=== PATIENT | male | born 1940 | race Caucasian/White ===

== ENCOUNTER 2017-05-06 07:41 | Observation (INO) | payer MEDICARE ==
[~2017-05-06] VITALS: Ht 177.8 cm; Wt 97.5 kg
[~2017-05-06 07:41] MED LIST: BACITRACIN 50,000 UNIT VIAL ONE; MUPIROCIN 2% OINT 22 GM TUBE ONE; ROPIVACAINE 246.25 MG, EPINEPHRINE HCL 1:1000 0.5 MG, CLONIDINE HCL 0.08 MG, KETOROLAC ... INJ ONE; SIMVASTATIN20 MG PO; TRANEXAMIC ACID 1,000 MG/10 ML ML ONE
[2017-05-06] MEDS ORDERED: DEXAMETHASONE SOD PHOS 10 MG/1 ML VIAL ONE (07:54)
[2017-05-06] MEDS ORDERED: GABAPENTIN 300 MG CAP ONE (07:54)
[2017-05-06] MEDS ORDERED: CEFAZOLIN SOD 2 GM/D5W 50ML 50 ML IV ONE (07:55)
[2017-05-06] MEDS ORDERED: CELECOXIB 200 MG CAP ONE (07:55)
[2017-05-06] MEDS ORDERED: HYDROCODONE/APAP 7.5MG-325MG 1 EA TAB PO PRN (10:00)
[2017-05-06] MEDS ORDERED: DIPHENHYDRAMINE HCL INJ 50 MG/ML VIAL IM/IV PRN (10:00)
[2017-05-06] MEDS ORDERED: ZOLPIDEM TARTRATE 5 MG TAB PO PRN (10:00)
[2017-05-06] MEDS ORDERED: ACETAMINOPHEN 650 MG SUPP PR PRN (10:00)
[2017-05-06] MEDS ORDERED: DOCUSATE SODIUM 100 MG CAP PO PRN (10:00)
[2017-05-06] MEDS ORDERED: ONDANSETRON HCL INJ 2 MG/ML VIAL IV PRN (10:00)
[2017-05-06] MEDS ORDERED: PROMETHAZINE HCL (IM) 25 MG/ML VIAL INJ PRN (10:00)
[2017-05-06] MEDS ORDERED: KETOROLAC TROMETHAMINE 30 MG/ML VIAL IV PRN (10:00)
[2017-05-06] MEDS ORDERED: FENTANYL CITRATE/PF 100MCG/2 ML INJ ONE ×2 (10:40→18:50)
[2017-05-06] MEDS: ACETAMINOPHEN 1000 MG/100 ML IV SCH ×3 (12:00→23:43)
--- NOTE | 2017-05-06 12:08 | Diagnostic Imaging Report ---
PROCEDURE: X-RAY LEFT KNEE, ONE OR TWO VIEWS COMPARISON: None. INDICATIONS:POST OPERATIVE KNEE X-RAY FINDINGS: See conclusion. CONCLUSION: Status post total left knee replacement with surrounding soft tissue swelling, air and butch consistent with recent surgery. No acute fractures. Dictated by: Willie Castro M.D. on 05/06/2017 at 12:16 Electronically approved by: Willie Castro M.D. on 05/06/2017 at 12:16
--- NOTE | 2017-05-06 13:34 | Operative Report ---
DATE OF PROCEDURE: May 06, 2017 WIG SALES CONSULTANT: Rogers Nowak PA-C The patient was brought to the operating room for induction of anesthesia. Throughout this case, my PA's assistance was necessary for retraction of soft tissue and positioning of the extremity. This allows for efficient and technically successful execution of the operation and is considered medically necessary. PREOPERATIVE DIAGNOSIS: Osteoarthritis, left knee. POSTOPERATIVE DIAGNOSIS: Osteoarthritis, left knee. PROCEDURE: Left total knee arthroplasty. INDICATIONS: The patient is a 77-year-old gentleman with advanced arthritis in his left knee. He has failed conservative management, would like to proceed with a left total knee replacement. The risks and benefits have been discussed. The recovery has been discussed. The patient states he understands and wishes to proceed. DESCRIPTION OF PROCEDURE: The patient was brought to the operating room and placed under general anesthetic. He received prophylactic antibiotics, a regional block, and tranexamic acid in the holding area. His left lower extremity was prepped and draped in a sterile manner. A preoperative time out was performed. The extremity was exsanguinated and the proximal tourniquet was inflated to 300 mmHg. An anterior approach with a medial parapatellar arthrotomy was performed. Complete loss of articular cartilage was noted. The knee was brought up into flexion with the patella everted. The cruciate ligaments were sacrificed. A Lac[employer] Nephew Daniela II posterior stabilized knee system was used throughout the case. An extramedullary cutting guide was used to resect the proximal tibia. The cut was referenced off of the least affected lateral compartment. The tibial baseplate was a size #7. The central fin punch was impacted and attention was directed towards the distal femur. An intramedullary cutting guide was used to resect the distal femur in 6 degrees of valgus and rotation referenced off of a combination of landmarks including Whitesides line, the posterior condyles, and the epicondylar axis. The femoral component was also a size #7. The anterior and posterior cuts were made. Trial reductions were performed. A 9 mm ultra-congruent tibial insert provided optimal soft tissue balancing in flexion and extension. The patella was resurfaced with a 35 mm x 7.5 mm patellar button. The thickness was checked before and after and was right around 26 mm. Patellar tracking was noted to be concentric. The trial implants were removed. A 100 mL premixed pericapsular injection was injected into the soft tissue. The knee was thoroughly irrigated with the Pulsavac. The components were cemented into place with a single mix of high-viscosity Simplex cement pre-loaded with antibiotics. Care was taken to remove extravasated cement. The wound was further irrigated while the cement cured. The arthrotomy was then closed with interrupted #1 Ethibond. The knee was put through flexion and extension to ensure a secure closure. The skin was closed with subcuticular Vicryl and butch. A sterile bandage was applied. The patient was extubated and transported to the recovery room in stable condition. Blood loss was minimal and all needle and sponge counts were correct. Job#: [id number] CARLY
[2017-05-06] MEDS ORDERED: LIDOCAINE HCL 2% LOCAL INJ 5 ML SDV VIAL INJ ONE (13:58)
[2017-05-06] MEDS ORDERED: DEXAMETHASONE SOD PHOS INJ 4 MG/ML VIAL ONE (13:58)
[2017-05-06] MEDS ORDERED: SEVOFLURANE INHAL SOLN 250 ML PEN BTL ONE (13:58)
[2017-05-06] MEDS ORDERED: EPHEDRINE SULFATE INJ 50 MG/10 ML SYR ONE (13:58)
[2017-05-06] MEDS ORDERED: ONDANSETRON HCL INJ 2 MG/ML VIAL ONE (13:58)
[2017-05-06] MEDS ORDERED: PROPOFOL IV EMULSION 10 MG/ML 20 ML VIAL ONE (13:58)
[2017-05-06] MEDS ORDERED: CEFAZOLIN SOD 1 GM/NS 50ML 50 ML IV SCH (14:00)
[2017-05-06 16:17] VITALS: BP 134/78
[2017-05-06] MEDS: ASPIRIN 325 MG TAB PO SCH (16:54)
[2017-05-06] MEDS: CEFAZOLIN SOD 1 GM VIAL IV SCH ×2 (16:54→23:43)
[2017-05-06] MEDS: CELECOXIB 200 MG CAP PO SCH (16:55)
[2017-05-06] MEDS ORDERED: CELECOXIB 100 MG CAP PO SCH (17:00)
[2017-05-06 17:15] VITALS: BP 134/78
[2017-05-06] MEDS ORDERED: MIDAZOLAM HCL 2 MG/2 ML VIAL ONE (18:50)
[2017-05-06 20:00] VITALS: BP 123/66
[2017-05-06] MEDS: HYDROCODONE/APAP 5MG-325MG TAB PO PRN (22:07)
[2017-05-06] MEDS: SODIUM CHLORIDE 0.9% 1000ML 1,000 ML IV SCH ×2 (22:56→22:57)
[2017-05-07] VITALS (7 sets, daily range): BP systolic 116–154; BP diastolic 61–85
[2017-05-07] MEDS: ACETAMINOPHEN 1000 MG/100 ML IV SCH (05:32)
[2017-05-07] MEDS: SODIUM CHLORIDE 0.9% 1000ML 1,000 ML IV SCH ×2 (05:32→15:59)
[2017-05-07 07:16] LABS: HEMATOCRIT 36.5 % (38.2-49.6)
[2017-05-07] MEDS: CEFAZOLIN SOD 1 GM VIAL IV SCH (09:00)
[2017-05-07] MEDS: ASPIRIN 325 MG TAB PO SCH ×2 (09:00→16:54)
[2017-05-07] MEDS: CELECOXIB 200 MG CAP PO SCH ×2 (09:00→16:54)
[2017-05-07] MEDS ORDERED: ASPIRIN325 MG PO (09:55)
[2017-05-07] MEDS ORDERED: ACETAMINOPHEN 1000 MG/100 ML IV PRN (10:00)
[2017-05-07] MEDS: HYDROCODONE/APAP 5MG-325MG TAB PO PRN ×2 (11:13→17:41)
[2017-05-07] MEDS ORDERED: NORCO 7.5-3251 EACH PO (15:39)
[2017-05-07] MEDS ORDERED: LIDOCAINE HCL 2% LOCAL 20 ML VIAL ONE (18:39)
[2017-05-07] MEDS ORDERED: ROPIVACAINE 0.5% 5 MG/ML 30 ML SDV ONE (18:39)
[2017-05-08] VITALS: BP 149/86
[2017-05-08 01:10] VITALS: BP 149/86
[2017-05-08] MEDS: SODIUM CHLORIDE 0.9% 1000ML 1,000 ML IV SCH ×2 (02:45→11:59)
[2017-05-08 04:00] VITALS: BP 136/82
[2017-05-08 07:01] LABS: HEMATOCRIT 35.9 % (38.2-49.6); HEMOGLOBIN 12.2 g/dL (14.0-18.0)
[2017-05-08] MEDS: ASPIRIN 325 MG TAB PO SCH (07:29)
[2017-05-08] MEDS: CELECOXIB 200 MG CAP PO SCH (07:29)
[2017-05-08 07:30] VITALS: BP 136/82
[2017-05-08 08:53] VITALS: BP 150/89
--- NOTE | 2017-05-08 11:25 | Consultation ---
DATE OF CONSULTATION: May 08, 2017 UROLOGY CONSULTATION REASON FOR CONSULTATION: Urinary retention. HISTORY OF PRESENT ILLNESS: Reynaldo Powell is a 77-year-old man who has never been evaluated by a urologist. He denies hematuria, dysuria, urinary tract infection or urolithiasis. He does report some decreased urinary force of stream for some time, and he also reports several times per night nocturia. The patient denies any other urological problems. He has never had a kidney stone. The patient is 2 days status post left total knee arthroplasty, and urological consultation was sought due to the fact that the patient had urinary retention on postop day #1. He underwent straight catheterization for 700 mL. At a 2nd voiding failure, he had urinary retention for 800 mL. Carty catheter was left in place after the secondary failure. Some blood in the urine and blood around the catheter at the urethral meatus was noted. PAST MEDICAL AND SURGICAL HISTORY 1. Status post tonsillectomy. 2. Status post right upper arm ORIF. 3. Status post left total knee arthroplasty. 4. Hypercholesterolemia. 5. Status post vasectomy. ALLERGIES: NONE KNOWN. CURRENT MEDICATIONS: Please refer to the MAR. SOCIAL HISTORY: The patient quit smoking over 20 years ago. Denies smoking, ethanol or drug use. 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 FAMILY HISTORY: Noncontributory to the active urological problems. REVIEW OF SYSTEMS: As discussed above in the history of present illness and past medical history, otherwise negative for all systems. PHYSICAL EXAMINATION GENERAL: Healthy-appearing man lying in bed in no apparent distress. VITAL SIGNS: He is currently afebrile, and the vital signs are currently stable. ABDOMEN: Soft, nondistended and nontender without costovertebral angle tenderness. The kidneys are not palpable without hepatosplenomegaly. No obvious evidence of hernia. GENITOURINARY: Testes are descended bilaterally. Testes and epididymides are bilaterally unremarkable. The patient has a normal circumcised male phallus with a normal meatus with a Carty catheter in place with blood around the catheter at the urethral meatus. Minimal amount of blood tinging within the Carty catheter. For the remaining physical examination systems, please refer to the admission history and physical on the chart. LABORATORY STUDIES: The patient's hemoglobin is 12.2 and hematocrit 35.9. No other urologically relevant laboratory reports are present in the chart today. ASSESSMENT 1. Urinary retention for 700 and 800 mL. 2. Decreased urinary force of stream in the recent past. 3. Nocturia. 4. Gross hematuria. PLAN 1. The patient can be discharged from a urological standpoint. The only problem is he needs to go home with a Carty catheter. 2. I will give the patient a prescription for Flomax as well as prophylactic antibiotics. The only reason I am giving the patient antibiotics is to prevent the knee from getting infected. 3. The patient needs to follow up in the office for a urodynamic test at which point in time we will determine whether a voiding trial without catheter would be in order. Thank you very much for involving me in the care of your patient. We will be happy to follow him along with you, as well as an outpatient. Job#: [id number] MH cc:MD PINA BLACKWELL,
[2017-05-08 12:29] VITALS: BP 175/84
--- NOTE | 2017-05-24 16:16 | Discharge Summary ---
CHIEF COMPLAINT: Left knee pain. HISTORY OF PRESENT ILLNESS: This is a 77-year-old male who complains of left knee pain for roughly 2 years. He states the pain has gotten progressively worse over the last few months. The patient has tried home exercises, a cortisone injection, and anti-inflammatories without lasting relief. His x-rays show advanced arthritis in the left knee. The findings and options were discussed with the patient. He has been treated with nearly 3 years of conservative management. He is at the point where he feels conservative management has failed. He would now like to proceed with more aggressive intervention. The risks and benefits of a left total knee replacement were explained. The patient states she understands and wishes to proceed. HOSPITAL COURSE: The patient underwent a left total knee replacement without complications. He was then transported to the recovery room and the floor in stable condition. He was followed by Dr. Juares for postop medical management. He progressed well with physical therapy. He had an issue with urinary retention and had to be catheterized. He was seen by Dr. Medina who recommended a home indwelling catheter for a short of period of time. The patient was able to be discharged home on postop day #2. PRINCIPAL DIAGNOSIS: Osteoarthritis of the left knee. PRINCIPAL PROCEDURE: Left total knee replacement. DISCHARGE INSTRUCTIONS: Patient was discharged home with home health and physical therapy arranged. He is to be weightbearing as tolerated with a rolling walker. He was to resume his home medications as directed. He was to take aspirin twice a day for thromboprophylaxis. He was instructed to follow up with urology regarding his catheter and urinary retention. He was instructed to follow up in our office in roughly 8 to 10 days. Dictated by: Rogers Nowak PA-C ALFRED DEMARCO MD Job#: [id number] LUIS E
== END 2017-05-08 12:32 | disposition home health service (06) ==
LOC: OR 07:41 → INTOOBSV 15:00 → MED/SURG 15:00
PROVIDERS: ADMIT Specialist; ATTEND Specialist
DX: M17.12 Unilateral primary osteoarthritis, left knee (principal); R33.9 Retention of urine, unspecified; R31.0 Gross hematuria; D64.9 Anemia, unspecified; R35.1 Nocturia; Z01.812 Encounter for preprocedural laboratory examination; Z87.891 Personal history of nicotine dependence; Z79.82 Long term (current) use of aspirin; E78.00 Pure hypercholesterolemia, unspecified
CPT/HCPCS: 27447; 36415 ×2; 51702; 73560; 85014 ×2; 85018 ×2; 86850; 86900; 86920; 97110 ×2; 97116 ×2; 97161; 97530; C1713; G0378 ×3; G8978; G8979; J0171; J0690 ×2; J1100 ×2; J1885; J2001 ×2; J2250; J2405; J2795 ×2; J7030 ×2

== ENCOUNTER → 2018-01-17 | Outpatient (CLI) | payer MEDICARE ==
[~2018-01-17] MED LIST changes: +ASPIRIN325 MG PO; -BACITRACIN 50,000 UNIT VIAL ONE; -MUPIROCIN 2% OINT 22 GM TUBE ONE; +NORCO 7.5-3251 EACH PO; -ROPIVACAINE 246.25 MG, EPINEPHRINE HCL 1:1000 0.5 MG, CLONIDINE HCL 0.08 MG, KETOROLAC ... INJ ONE; -TRANEXAMIC ACID 1,000 MG/10 ML ML ONE
--- NOTE | 2018-01-17 12:52 | Diagnostic Imaging Report ---
EXAM: CT Abdomen and Pelvis WITHOUT contrast INDICATION: \[id number] \S\1210 \S\CALCULUS OF KIDNEY COMPARISON: KUB 12/18/2017 TECHNIQUE: Abdomen and pelvis were scanned utilizing a multidetector helical scanner from the lung base to the pubic symphysis without administration of IV contrast. Absence of intravenous contrast decreases sensitivity for detection of focal lesions and vascular pathology. Coronal and sagittal reformations were obtained. Routine protocol was performed. IV CONTRAST: None. ORAL CONTRAST: Water RADIATION DOSE: Total DLP: 902.6 mGy*cm Estimated effective dose: (DLP x 0.015 x size factor) mSv COMPLICATIONS: None FINDINGS: LINES and TUBES: None. LOWER THORAX: 5 mm pleural-based solid nodule in the lingula on series 3, image 6. Mild atherosclerotic calcifications of the abdominal aorta. HEPATOBILIARY: 10 mm hypodense cystic lesion in the posterior lobe of the liver on series 3, image 26 may represent a cyst. No biliary ductal dilation. GALLBLADDER: No radio-opaque stones or sludge. No wall thickening. SPLEEN: No splenomegaly. PANCREAS: No focal masses or ductal dilatation. ADRENALS: No adrenal nodules KIDNEYS/URETERS: Both kidneys are mildly atrophic. No hydronephrosis. Multiple bilateral low-attenuation cysts. The largest is in the upper pole of the left kidney, measuring 15.6 x 13.1 cm, which contains focal wall calcification within the medial aspect. 7 mm calcified stone in the inferior pole of the left kidney on coronal image 49. No calcified stones in the right kidney or ureters. GI TRACT: No abnormal distention, wall thickening, or evidence of bowel obstruction. Scattered diverticulosis throughout the sigmoid colon. Appendix is normal. PELVIC ORGANS/BLADDER: Unremarkable. LYMPH NODES: No lymphadenopathy. VESSELS: Mild atherosclerotic calcifications of the abdominal aorta without aneurysm. PERITONEUM / RETROPERITONEUM: No free air or fluid. BONES: Multiple right-sided healed rib fractures. Multilevel degenerative changes of the lumbar spine. SOFT TISSUES: Unremarkable. IMPRESSION: 1. Single left inferior pole 7 mm renal stone without obstruction. 2. Multiple bilateral renal cysts with the largest on the left containing focal wall calcification. This can be better follow and evaluated with renal ultrasound in 3-6 months. 3. Lingular 5 mm solid nodule. No further follow-up needed. If high risk, optional CT chest without contrast can be obtained in 12 months. Signed by: Dr. Lizbet Pineda M.D. on 01/17/2018 12:48 PM
== END ==
LOC: CT 11:51
PROVIDERS: ATTEND Urology
DX: N20.0 Calculus of kidney (principal)
CPT/HCPCS: 74176

== ENCOUNTER → 2018-04-04 | Day surgery (SDC) | payer MEDICARE ==
[2018-03-25 12:37] LABS: BASOPHILS # (AUTO) 0.1 (0.0-0.1); BASOPHILS % 0.7 % (0.0-1.0); EOSINOPHILS # (AUTO) 0.1 (0.0-0.4); EOSINOPHILS % 1.9 % (0.0-6.0); HEMATOCRIT 44.2 % (38.2-49.6); HEMOGLOBIN 14.6 g/dL (14.0-18.0); LYMPHOCYTES % 27.4 % (18.0-39.1); MEAN CORPUSCULAR VOLUME 90.8 fL (81-99); MONOCYTES # (AUTO) 0.8 (0.2-0.8); MONOCYTES % 11.5 % (4.4-11.3); NEUTROPHILS # (AUTO) 4.2 (2.1-6.9); NEUTROPHILS % 58.2 % (38.7-80.0); PLATELET COUNT 199 x10e3/uL (140-360); RED BLOOD COUNT 4.87 x10e6/uL (4.3-5.7); RED CELL DISTRIBUTION WIDTH 12.6 % (11.7-14.4)
--- NOTE | 2018-03-25 12:37 | Diagnostic Imaging Report ---
Exam: Abdominal film Clinical History: Preoperative study for urological procedure Comparison: CT abdomen and pelvis without contrast DISCUSSION: Large ovoid relative radiodensity projecting over the left side of the abdomen displaces multiple bowel loops, shown to represent a large left renal cyst on comparison CT. Along the inferior margin, 7 mm left lower pole renal calculus, unchanged. No additional calcifications project over the renal shadows or expected ureteral courses. Bowel gas pattern is nonobstructive. Regional skeletal structures notable for multilevel degenerative disc changes of the thoracolumbar spine and heterotopic ossification along the left iliac wing. IMPRESSION: 7 mm left lower pole renal calculus unchanged compared to prior CT. Signed by: Dr. Arturo Tao M.D. on 03/25/2018 12:34 PM
--- NOTE | 2018-03-25 12:39 | Diagnostic Imaging Report ---
EXAMINATION: PA and lateral views of the chest. COMPARISON: CT abdomen and pelvis without contrast 01/17/2018 CLINICAL HISTORY: Preoperative for urological procedure DISCUSSION: Persistent right hemidiaphragmatic elevation with interposition of colon between the right hepatic lobe and dome of the liver. Lungs are otherwise clear without consolidation, pleural effusion, or pneumothorax. Cardiomediastinal contour is notable for atherosclerotic calcification of the thoracic aorta. Normal heart size. No pulmonary edema. Multiple healed right-sided rib fracture deformities. IMPRESSION: No acute cardiopulmonary abnormality. Signed by: Dr. Arturo Tao M.D. on 03/25/2018 12:36 PM
[2018-03-25 13:16] LABS: BLOOD UREA NITROGEN 19 mg/dL (7-26); BUN/CREATININE RATIO 18 (6-25); CALCIUM 9.2 mg/dL (8.4-10.2); CARBON DIOXIDE 25 mmol/L (22-29); CHLORIDE 105 mmol/L (98-107); CREATININE, SERUM 1.05 mg/dL (0.72-1.25); EST GLOMERULAR FILTRATION RATE > 60 ML/MIN (60-); GLUCOSE 102 mg/dL (74-118); SODIUM 140 mmol/L (136-145)
[~2018-04-04] MED LIST changes: +BELLADONNA/OPIUM 30 MG SUPP RC ONE; +CEFTRIAXONE SOD 1 GM/NS 50 ML 50 ML IV ONE; +DESFLURANE 240 ML BTL INH ONE; +DEXAMETHASONE SOD PHOS INJ 4 MG/ML VIAL ONE; +EPHEDRINE SULFATE INJ 50 MG/10 ML SYR ONE; +FENTANYL CITRATE/PF 100MCG/2 ML INJ ONE; +FINASTERIDE5 MG PO; +FLOMAX0.4 MG PO; +IOPAMIDOL 610MG/1ML 300 MG/ML VIAL IV ONE; +LIDOCAINE HCL 2% LOCAL INJ 5 ML SDV VIAL INJ ONE; +MIDAZOLAM HCL 2 MG/2 ML VIAL ONE; +ONDANSETRON HCL INJ 2MG/ML 2ML 2 MG/ML VIAL ONE; +PROPOFOL IV EMULSION 10 MG/ML 20 ML VIAL ONE
--- OUTSIDE RECORDS SUMMARY | 2018-04-04 05:16 | XMS REPORT ---
Author Author [facility] Address Unknown Phone Unavailable Care Team Providers Care Fitter Tacker Name Role Phone GIOVANI ROSARIO Unavailable Unavailable ALFRED DEMARCO Unavailable Unavailable Problems This patient has no known problems. Allergies, Adverse Reactions, Alerts This patient has no known allergies or adverse reactions. Medications This patient has no known medications. Results Test Description Test Time Test Comments Text Results Atomic Results Result Comments CHEST 2 VIEWS 2018-03-25 12:34:[address] [address] Patient Name: CHU HAZEL MR #: [id number] : 1940 Age/Sex: 78/M Req #: [id number] Adm Physician: Ordered by: GIOVANI ROSARIO MD Report #: [id number] Location: OR Room/Bed: Procedure: [id number] DX/CHEST 2 VIEWS Exam Date: 03/25/18 Exam Time: 1200 REPORT STATUS: Signed EXAMINATION: PA and lateral views of the chest. COMPAR CONRADO: CT abdomen and pelvis without contrast 01/17/2018 CLINICAL HISTORY: Preoperative for urological procedure DISCUSSION: Persistent right hemidiaphragmatic elevation with interposition of colon between the right hepatic lobe and dome of the liver. Lungs are otherwise clear without consolidation, pleural effusion, or pneumothorax. Cardiomediastinal contour is notable for atherosclerotic calcification of the thoracic aorta. Normal heart size. No pulmonary edema. Multiple healed right-sided rib fracture deformities. IMPRESSION: No acute cardiopulmonary abnormality. Signed by: Dr. Alfred Fry M.D. on 03/25/2018 12:36 PM Dictated By: ALFRED FRY MD 1236 Transcribed By: JIMMY on 03/25/18 1236 COPY TO: GIOVANI ROSARIO MD ABDOMEN-1VIEW (KUB) 2018-03-25 12:31:00 [place] [address] Patient Name: CHU HAZEL MR #: [id number] : 1940 Age/Sex: 78/M Req #: [id number] Adm Physician: Ordered by: GIOVANI ROSARIO MD Report #: [id number] Location: OR Room/Bed: Procedure: [id number] DX/ABDOMEN-1VIEW (KUB) Exam Date: 03/25/18 Exam Time: 1200 REPORT STATUS: Signed Exam: Abdominal film Clinical History: Preoperative study for urological procedure Comparison: CT abdomen and pelvis without contrast DISCUSSION: Large ovoid relative radiodensity projecting over the left side of the abdomen displaces multiple bowel loops, shown to represent a large left renal cyst on comparison CT. Along the inferior margin, 7 mm left lower pole renal calculus, unchanged. No additional calcifications project over the renal shadows or expected ureteral courses. Bowel gas pattern is nonobstructive. Regional skeletal structures notable for multilevel degenerative disc changes of the thoracolumbar spine and heterotopic ossification along the left iliac wing. IMPRESSION: 7 mm left lower pole renal calculus unchanged compared to prior CT. Signed by: Dr. Alfred Fry M.D. on 03/25/2018 12:34 PM Dictated By: ALFRED FRY MD 1234 Transcribed By: JIMMY on 03/25/18 1234 COPY TO: GIOVANI ROSARIO MD CT ABDOMEN/PELVIS WO 2018-01-17 12:40:00 [place] [address] Patient Name: CHU HAZEL MR #: [id number] : 1940 Age/Sex: 77/M Req #: [id number] Adm Physician: Ordered by: GIOVANI ROSARIO MD Report #: [id number] Location: CT Room/Bed: Procedure: [id number] CT/CT ABDOMEN/PELVIS WO Exam Date: 01/17/18 Exam Time: 1210 REPORT STATUS: Signed EXAM: CT Abdomen and Pelvis WITHOUT contrast INDICATION: COMPARISON: KUB 12/18/2017 TECHNIQUE: Abdomen and pelvis were scanned utilizing a multidetector helical scanner from the lung base to the pubic symphysis without administration of IV contrast. Absence of intravenous contrast decreases sensitivity for detection of focal lesions and vascular pathology. Coronal and sagittal reformations were obtained. Routine protocol was performed. IV CONTRAST: None. ORAL CONTRAST: Water RADIATION DOSE: Total DLP: 902.6 mGy*cm Estimated effective dose: (DLP x 0.015 x size factor) mSv COMPLICATIONS: None FINDINGS: LINES and TUBES: None. LOWER THORAX: 5 mm pleural-based solid nodule in the lingula on series 3, image 6. Mild atherosclerotic calcifications of the abdominal aorta. HEPATOBILIARY: 10 mm hypodense cystic lesion in the posterior lobe of the liver on series 3, image 26 may represent a cyst. No biliary ductal dilation. GALLBLADDER: No radio-opaque stones or sludge. No wall thickening. SPLEEN: No splenomegaly. PANCREAS: No focal masses or ductal dilatation. ADRENALS: No adrenal nodules KIDNEYS/URETERS: Both kidneys are mildly atrophic. No hydronephrosis. Multiple bilateral low-attenuation cysts. The largest is in the upper pole of the left kidney, measuring 15.6 x 13.1 cm, which contains focal wall calcification within the medial aspect. 7 mm calcified stone in the inferior pole of the left kidney on coronal image 49. No calcified stones in the right kidney or ureters. GI TRACT: No abnormal distention, wall thickening, or evidence of bowel obstruction. Scattered diverticulosis throughout the sigmoid colon. Appendix is normal. PELVIC ORGANS/BLADDER: Unremarkable. LYMPH NODES: No lymphadenopathy. VESSELS: Mild atherosclerotic calcifications of the abdominal aorta without aneurysm. PERITONEUM / RETROPERITONEUM: No free air or fluid. BONES: Multiple right-sided healed rib fractures. Multilevel degenerative changes of the lumbar spine. SOFT TISSUES: Unremarkable. IMPRESSION: 1. Single left inferior pole 7 mm renal stone without obstruction. 2. Multiple bilateral renal cysts with the largest on the left containing focal wall calcification. This can be better follow and evaluated with renal ultrasound in 3-6 months. 3. Lingular 5 mm solid nodule. No further follow-up needed. If high risk, optional CT chest without contrast can be obtained in 12 months. Signed by: Dr. Chong Mueller M.D. on 01/17/2018 12:48 PM Dictated By: CHONG MUELLER MD 1248 Transcribed By: JIMMY on 01/17/18 1248 COPY TO: GIOVANI ROSARIO MD ABDOMEN-1VIEW (KU) 2017-12-18 12:05:00 [place] [address] Patient Name: CHU HAZEL MR #: [id number] : 1940 Age/Sex: 77/M Req #: [id number] Adm Physician: Ordered by: GIOVANI ROSARIO MD Report #: [id number] Location: [facility] Room/Bed: Procedure: DX/ABDOMEN-1VIEW (KUB) Exam Date: 12/18/17 Exam Time: 1140 REPORT STATUS: Signed EXAM: Abdomen 1 Views INDICATION: S CALCULUS OF KIDNEY COMPARISON: None FINDINGS: Mild amount of stool in the colon. No dilated loops of small bowel. 0.6 cm density overlying the inferior pole of the left kidney, likely a left renal stone. Asymmetric soft tissue density overlying the left abdomen. Severe degenerative changes in the lumbar spine and pelvis. IMPRESSION: 1. 0.6 cm left renal stone. 2. Asymmetric density overlying the left abdomen. This is in the approximate location of either an enlarged left kidney or a stomach filled with hyperdense material. Recommend CT abdomen and pelvis with contrast for further evaluation. Signed by: Dr. Chris Wilkins M.D. on 12/18/2017 12:07 PM Dictated By: CHRIS WILKINS MD 06 Transcribed By: JIMMY on 12/18/171206 COPY TO: GIOVANI ROSARIO MD KNEE LEFT 1-2 VIEWS [place] [address] Patient Name: CHU HAZEL MR #: [id number] : 1940 Age/Sex: 77/M Req #: [id number] Adm Physician: Ordered by: ALFRED DEMARCO MD Report #: [id number] Location: OR Room/Bed: Procedure: [id number] DX/KNEE LEFT 1-2 VIEWS Exam Date: 05/06/17 Exam Time: 1030 REPORT STATUS: Signed PROCEDURE: X-RAY LEFT KNEE, ONE OR TWO VIEWS COMPARISON: None. INDICATIONS: POST OPERATIVE KNEE X-RAY FINDINGS: See conclusion. CONCLUSION: Status post total left knee replacement with surrounding soft tissue swelling, air and butch consistent with recent surgery. No acute fractures. Dictated by: Willie Branch M.D. on 05/06/2017 at 12:16 Electronically approved by: Willie Branch M.D. on 05/06/2017 at 12:16 Dictated By: WILLIE BRANCH MD 1216 Transcribed By: HEIDY on 05/06/17 1216 COPY TO: ALFRED DEMARCO MD
--- NOTE | 2018-04-04 07:21 | Diagnostic Imaging Report ---
Exam: Abdominal films (2 views) Comparison: CT abdomen and pelvis without contrast 01/17/2018 and KUB 03/25/18. DISCUSSION: Large left abdominal radiodensity corresponding to left renal cyst is again noted. A 7 mm left lower pole renal stone is unchanged. No additional calcifications project over the renal shadows or expected course of the ureters. Non-obstructive bowel gas pattern. No acute bony abnormality. IMPRESSION: Unchanged appearance of 7 mm left lower pole renal calculus. Signed by: Dr. María Campbell MD on 04/04/2018 7:18 AM
[2018-04-04 09:40] VITALS: BP 139/76
--- NOTE | 2018-05-20 09:08 | Operative Report ---
DATE OF PROCEDURE: April 04, 2018 PREOPERATIVE DIAGNOSES: 1. Left nephrolithiasis. 2. Hematuria. POSTOPERATIVE DIAGNOSES: 1. Left nephrolithiasis. 2. Hematuria. 3. Urethral stricture disease. OPERATIONS PERFORMED: 1. Left-sided extracorporeal shock wave lithotripsy (separate staged procedure performed for the nephrolithiasis). 2. Cystourethroscopy with calibration and dilation of bulbar urethral stricture (separate procedure performed for the diagnosis of stricture). 3. Cystourethroscopy with bilateral ureteral catheterization and retrograde ureteropyelography (separate procedure performed for the hematuria). 4. Interpretation of retrograde ureteropyelography. 5. Supervision of fluoroscopy, no radiologist present. ANESTHESIA: General. COMPLICATIONS: None. CLINICAL SUMMARY: Reynaldo Powell is a 78-year-old man who has BPH. He has a history of urinary retention. He has been on Flomax and Proscar. He has nephrolithiasis and is brought for the above procedures. He has bilateral renal cysts, bigger on the left. He is aware of the risks of bleeding, infection, injury to adjacent structures, need for additional procedures, and elected to proceed. OPERATIVE PROCEDURE IN DETAIL: Informed consent was verified. Reynaldo Powell was properly identified, taken to the operating room, and placed on the lithotripsy table in supine position. Anesthesia was uneventfully begun. The patient's 7 mm left lower caliceal stone was localized with biplanar fluoroscopy. Total of 2500 shocks were delivered with fragmentation noted. The patient was then carefully and gently repositioned in dorsal lithotomy position with all pressure points well padded. His genitalia were prepared and draped in usual sterile fashion. The 22.5-[place] cystoscope sheath with the visual obturator in place was atraumatically inserted into patient's urethra. It was guided down the unremarkable urethra to the bulbar region where there was a stricture noted. This stricture was short. We dilated this stricture with this visual obturator and scope. Thus, we dilated to 22.5-[place]. We then went through the prostate bed which was significant for kissing lateral lobes and a very elevated median bar causing visual obstruction of the bladder neck. The cystoscope had to the rotated towards the floor in order to go over this very prominent median bar. Panendoscopy of the urinary bladder revealed trabeculations, but no tumors, no stones, some small diverticula were noted especially periureterally. Tiny piece of sand was noted which I presumed was a small fragment that has passed during the lithotripsy. An 8-[place] catheter was used to cannulate each ureter, and retrograde ureteral pyelograms were performed. Interpretation of retrograde ureteropyelography: Contrast was instilled in retrograde fashion bilaterally. There were filling defects in the left kidney corresponding to location of the lithotripsy where there we presumed this is stone debris as well as blood clots. Otherwise, there was no hydronephrosis. Unobstructed drainage was observed bilaterally fluoroscopically. Both upper collecting systems were distorted by the known renal cysts. The patient's bladder was drained. The cystoscope was withdrawn. A belladonna and opium suppository was placed revealing a 50 g prostate that is smooth, non-fluctuant, and without any nodules. The patient was then uneventfully reversed from anesthesia and taken to recovery room in stable condition. Explicit postop instructions were given. Will plan to follow the patient up in the office and eventually perform uroflowmetry and bladder ultrasonography. Job#: [id number] cc:PINA FOX DO
== END | disposition home or self-care (01) ==
LOC: OR 05:13
PROVIDERS: ATTEND Urology
DX: N20.0 Calculus of kidney (principal); N35.912 Unspecified bulbous urethral stricture, male; N32.89 Other specified disorders of bladder; N28.1 Cyst of kidney, acquired; N40.0 Benign prostatic hyperplasia without lower urinary tract symptoms; N32.0 Bladder-neck obstruction; E78.00 Pure hypercholesterolemia, unspecified; Z01.810 Encounter for preprocedural cardiovascular examination; Z01.812 Encounter for preprocedural laboratory examination; Z01.818 Encounter for other preprocedural examination; Z96.652 Presence of left artificial knee joint
CPT/HCPCS: 36415; 50590; 52281; 71046; 74018 ×2; 80048; 83970; 84550; 85025; 93005; C1758; J0696; J1100; J2001; J2250; J2405; J2704; Q9967